=== PATIENT | female | born 2005 | race Caucasian/White ===

== ENCOUNTER 2024-04-02 05:51 | Day surgery (SDC) | payer BC ==
[2024-03-29 14:08] VITALS: BMI 17.7
[2024-04-02] MEDS ORDERED: EPINEPHrine 1 MG/ML VIAL ONE (06:25)
[2024-04-02] MEDS ORDERED: CEFAZOLIN 2 GM VIAL ONE (06:26)
[2024-04-02] MEDS ORDERED: fentaNYL 50 mcg/mL 1 mL Vial ONE (06:32)
[2024-04-02] MEDS ORDERED: Lidocaine 1% PF 5 ML VIAL ONE (06:32)
[2024-04-02] MEDS ORDERED: PROPOFOL 80 ML ONE (06:32)
[2024-04-02] MEDS ORDERED: Dexamethasone 20 MG/5 ML VIAL ONE (06:32)
[2024-04-02] MEDS ORDERED: Dexmedetomidine 200 MCG/2 ML VIAL ONE (06:32)
[2024-04-02] MEDS ORDERED: Ondansetron PF 4 MG/2 ML Vial ONE (06:32)
[2024-04-02] MEDS ORDERED: Lidocaine 1% (PF) 30 ML VIAL FS SCH (06:45)
[2024-04-02 06:55] LABS: Hematocrit 38.5 % (34.9-44.5); Hemoglobin 12.2 g/dL (12.0-15.5); Mean Corpuscular HGB CONC 31.7 g/dL (32.0-36.0); Mean Corpuscular Hemoglobin 27.1 pg (27.0-33.0); Mean Corpuscular Volume 85.4 fL (81.6-98.3); Mean Platelet Volume 10.3 fL (7.4-10.4); Platelet Count 201 10x3/uL (150-450); RBC Distribution Width 13.2 % (11.5-14.5); Red Blood Cell (RBC) Count 4.51 10x6/uL (3.90-5.03); White Blood Cell (WBC) Count 4.4 10x3/uL (3.5-10.5)
[2024-04-02 07:00] LABS: BHCG - Serum Negative (NEGATIVE); Pregs Control Background? CLEAR/WHITE (CLR/WHITE); Pregs Control Bar Appear? YES (CONTROL BAR)
[2024-04-02] MEDS ORDERED: PHENYLEPHRINE-NS 100 MCG/ML 10 ML SYRINGE ONE ×2 (07:23→07:47)
[2024-04-02] MEDS ORDERED: Acetaminophen 500 MG TAB ONE (09:35)
== END 2024-04-02 10:00 | disposition home or self-care (01) ==
LOC: CSHSDC 05:51
PROVIDERS: ATTEND Otolaryngology
PROC: 0GBG0ZZ Excision of Left Thyroid Gland Lobe, Open Approach (ICD-10-PCS; principal; 2024-04-02)
DX: E04.2 Nontoxic multinodular goiter (principal); E04.1 Nontoxic single thyroid nodule
CPT/HCPCS: 36415; 84703; 85027; 88305; 88307; J0171; J1100; J2405; J2704; J3010

== ENCOUNTER 2024-04-30 09:37 | Observation (INO) | payer BC ==
[2024-04-26 14:59] VITALS: BMI 18.6
[2024-04-30 11:02] LABS: Hematocrit 37.4 % (34.9-44.5)
[2024-04-30] MEDS ORDERED: Lidocaine 1% w/Epinephrine 1:200K 30 ML VIAL ONE (12:17)
[2024-04-30] MEDS ORDERED: Lidocaine 1% PF 5 ML VIAL ONE (12:19)
[2024-04-30] MEDS ORDERED: Ondansetron PF 4 MG/2 ML Vial ONE (12:19)
[2024-04-30] MEDS ORDERED: Rocuronium Bromide 10 MG/ML (10ML VIAL) ONE (12:19)
[2024-04-30] MEDS ORDERED: SUGAMMADEX SODIUM 200 MG/2 ML VIAL ONE (12:19)
[2024-04-30] MEDS ORDERED: Dexamethasone 20 MG/5 ML VIAL ONE (12:19)
[2024-04-30] MEDS ORDERED: fentaNYL 50 mcg/mL 1 mL Vial ONE (12:20)
[2024-04-30] MEDS ORDERED: PROPOFOL 20 ML ONE (12:20)
[2024-04-30] MEDS ORDERED: Midazolam HCl 2 mg/2 ml Vial ONE (12:20)
[2024-04-30] MEDS ORDERED: CEFAZOLIN 1 GM VIAL ONE (12:22)
[2024-04-30] MEDS ORDERED: Ondansetron ODT 4 MG TAB PO PRN (13:53)
[2024-04-30] MEDS ORDERED: Ondansetron PF 4 MG/2 ML Vial IVP PRN (13:53)
[2024-04-30] MEDS ORDERED: Acetaminophen/Codeine 30-300mg Tablet PO PRN (13:53)
[2024-04-30] MEDS ORDERED: HYDROcodone/Acetaminophen 10/325 mg Tablet PO PRN (13:55)
[2024-04-30] MEDS ORDERED: HYDROcodone/Acetaminophen 5/325 mg Tablet PO PRN (13:55)
[2024-04-30 14:36] LABS: Albumin 3.4 g/dL (3.1-4.5); Calcium 8.3 mg/dL (7.8-10.44)
[2024-04-30] MEDS: Acetaminophen 325 MG TAB PO SCH (14:56)
[2024-04-30] MEDS: Ibuprofen 200 MG TAB PO SCH (14:57)
[2024-04-30] MEDS: Calcium Carbonate 500 MG ChewTAB PO SCH ×2 (14:57→20:52)
[2024-04-30] MEDS: Levothyroxine Sodium 112 MCG TAB PO SCH (14:57)
[2024-04-30] MEDS: Calcitriol 0.25 MCG CAP PO SCH (20:52)
[2024-05-01 04:28] LABS: Anion Gap 12 mmol/L (10-20); BUN (Urea Nitrogen) 9 mg/dL (8.4-21.0); Calc. Creatinine Clearance 110 mL/min (70-130); Calcium 9.5 mg/dL (7.8-10.44); Carbon Dioxide 25 mmol/L (22-29); Chloride 107 mmol/L (98-107); Estimated GFR 130; Glucose 96 mg/dL (70-105); Potassium 4.1 mmol/L (3.5-5.1); Sodium 140 mmol/L (136-145)
[2024-05-01] MEDS ORDERED: Bisacodyl 5 MG TAB PO PRN (13:39)
[2024-05-01] MEDS: Levothyroxine Sodium 112 MCG TAB PO SCH (14:01)
[2024-05-01 17:53] LABS: Albumin 3.5 g/dL (3.1-4.5); Calcium 8.9 mg/dL (7.8-10.44)
[2024-05-02 05:10] VITALS: TEMP 98.1
[2024-05-02 05:24] LABS: Albumin 3.3 g/dL (3.1-4.5); Anion Gap 12 mmol/L (10-20); BUN (Urea Nitrogen) 10 mg/dL (8.4-21.0); Calc. Creatinine Clearance 102 mL/min (70-130); Calcium 9.2 mg/dL (7.8-10.44); Carbon Dioxide 24 mmol/L (22-29); Chloride 106 mmol/L (98-107); Estimated GFR 126; Glucose 78 mg/dL (70-105); Magnesium 1.5 mg/dL (1.7-2.2); Potassium 3.9 mmol/L (3.5-5.1); Sodium 138 mmol/L (136-145)
[2024-05-02 08:06] VITALS: BP 117/77
== END 2024-05-02 09:09 | disposition home or self-care (01) ==
LOC: CSHSDC 09:37 → CSHTELE 14:33
PROVIDERS: ADMIT Otolaryngology; ATTEND Otolaryngology
PROC: 0GTH0ZZ Resection of Right Thyroid Gland Lobe, Open Approach (ICD-10-PCS; principal; 2024-05-02)
DX: D34 Benign neoplasm of thyroid gland (principal); E04.2 Nontoxic multinodular goiter; H61.23 Impacted cerumen, bilateral; H60.8X3 Other otitis externa, bilateral; Z90.89 Acquired absence of other organs
CPT/HCPCS: 36415; 80048; 82040; 82310; 83735; 83970; 85014; 88307; 94760; J0690; J1100; J2250; J2405; J2704; J3010